=== PATIENT | male | born 1965 | race Caucasian/White ===

== ENCOUNTER 2017-12-31 10:24 | Emergency (ER) | payer SELFPAY ==
[2017-12-31 10:32] VITALS: BP 132/82
--- NOTE | 2017-12-31 11:38 | RADIOLOGY REPORT (SQ) ---
EXAM DESCRIPTION: HAND RIGHT 3 VIEWS COMPLETED DATE/TIME: 12/31/2017 11:21 am REASON FOR STUDY: right hand pain x2 weeks COMPARISON: None. EXAM PARAMETERS: NUMBER OF VIEWS: Three views. TECHNIQUE: AP, lateral and oblique radiographic images acquired of the right hand. LIMITATIONS: None. FINDINGS: MINERALIZATION: Normal. BONES: No acute fracture or dislocation. No worrisome bone lesions. JOINTS: No effusions. Mild interphalangeal joint space narrowing with small osteophytes. SOFT TISSUES: No soft tissue swelling. No foreign body. OTHER: No other significant finding. IMPRESSION: 1. No acute fracture-dislocation. 2. Mild right hand osteoarthrosis. TECHNICAL DOCUMENTATION: JOB ID: [id number] [employer]- All Rights Reserved Reading location - IP/workstation name: [email or web address]
[2017-12-31] MEDS ORDERED: ACETAMINOPHEN 325 MG TABLET PO ONE (11:51)
--- NOTE | 2017-12-31 11:52 | ER Document Report ---
HPI - HPI Patient complains to provider of: Joint pain Onset: Other - 2 weeks Onset/Duration: Persistent Quality of pain: Achy Pain Level: 4 Context: Patient presents complaining of joint pains of bilateral wrist, bilateral knees and right ankle for the past 2 weeks. Patient complains of some swelling to the right ankle and bilateral wrist. Patient denies any injury. Patient denies any history of rheumatoid arthritis, gout or autoimmune disorder. Patient denies any recent tick bites fever or skin rash. Patient without any headache. Associated Symptoms: Other - Joint pain and swelling. denies: Fever, Headache Exacerbated by: Movement Relieved by: Denies Similar symptoms previously: No Recently seen / treated by doctor: No - ROS ROS below otherwise negative: Yes Systems Reviewed and Negative: Yes All other systems reviewed and negative - CONSTITUTIONAL Constitutional: DENIES: Fever, Chills - EENT EENT: DENIES: Sore Throat - NEURO Neurology: DENIES: Headache, Weakness - RESPIRATORY Respiratory: DENIES: Coughing - REPRODUCTIVE Reproductive: DENIES: : - MUSCULOSKELETAL Musculoskeletal: REPORTS: Extremity pain, Swelling. DENIES: Back Pain, Neck Pain - DERM Skin Color: Normal Skin Problems: None Past Medical History - General Information source: Patient - Social History Smoking Status: Current Every Day Smoker Smoking Education Provided: Yes Frequency of alcohol use: None Drug Abuse: None Occupation: construction Family History: Reviewed & Not Pertinent - Medical History Medical History: Negative Past Surgical History: Reports: Hx Abdominal Surgery, Hx Appendectomy - Immunizations Hx Diphtheria, Pertussis, Tetanus Vaccination: Yes Vertical Provider Document - CONSTITUTIONAL Agree With Documented VS: Yes Exam Limitations: No Limitations General Appearance: WD/WN, No Apparent Distress - INFECTION CONTROL TRAVEL OUTSIDE OF THE [place] IN LAST 30 DAYS: No - HEENT HEENT: Atraumatic, Normal ENT Exam, Normocephalic - NECK Neck: Normal Inspection, Supple. negative: Lymphadenopathy-Left, Lymphadenopathy-Right - RESPIRATORY Respiratory: Breath Sounds Normal, No Respiratory Distress - CARDIOVASCULAR Cardiovascular: Regular Rate, Regular Rhythm Pulses: Normal: Radial, Posterior tibial - MUSCULOSKELETAL/EXTREMETIES Musculoskeletal/Extremeties: MAEW, FROM, Tender - Tenderness to bilateral wrist joints with 1+ edema that extends to the wrist distally into the hands. Patient with bilateral generalized knee joint tenderness. Right ankle joint tenderness to anterior aspect of joint with 1+ edema., Edema - Bilateral wrist, right ankle Notes: Patient's bilateral wrist, knees and ankle normal skin color and temperature with no overlying rash or erythema. - NEURO Level of Consciousness: Awake, Alert, Appropriate Motor/Sensory: No Motor Deficit, No Sensory Deficit - DERM Integumentary: Warm, Dry, No Rash Course - Re-evaluation Re-evalutation: 12/31/17 11:[address] Chacon regarding patient presentation and diagnostic evaluation. 12/31/17 12:56 Diagnostic test results reviewed, patient with still pending test that are send outs. Patient advised that he will need to follow-up with his primary doctor for further evaluation and that he may need rheumatologic follow-up. Patient without any erythema or fever. No concern for septic arthritis. Patient with good range of motion to the involved joints. Patient without any rash. Patient denies any history of tick bites. Discussed worsening symptoms for patient to return immediately for. Patient verbalized understanding and agrees with plan of care. - Vital Signs Vital signs: Temp Pulse Resp BP Pulse Ox 98.8 F 97 16 132/82 H 96 12/31/17 10:29 12/31/17 10:29 12/31/17 10:29 12/31/17 10:29 12/31/17 10:29 - Laboratory Result Diagrams: 12/31/17 12:05 12/31/17 12:05 Laboratory results interpreted by me: 12/31/17 12:56 Labs- Entire Visit 12/31/17 12/31/17 12/31/17 12:05 12:05 12:05 WBC 7.6 RBC 4.47 Hgb 13.6 Hct 39.6 MCV 89 MCH 30.4 MCHC 34.4 RDW 14.0 Plt Count 376 Seg Neutrophils % 51.3 Lymphocytes % 33.1 Monocytes % 10.6 Eosinophils % 4.5 Basophils % 0.5 Absolute Neutrophils 3.9 Absolute Lymphocytes 2.5 Absolute Monocytes 0.8 Absolute Eosinophils 0.3 Absolute Basophils 0.0 ESR 21 H Sodium 142.1 Potassium 4.6 Chloride 106 Carbon Dioxide 26 Anion Gap 10 BUN 17 Creatinine 0.71 Est GFR ( Amer) > 60 Est GFR (Non-Af Amer) > 60 Glucose 93 Uric Acid 4.0 Calcium 9.7 C-Reactive Protein 16.4 H Rheumatoid Factor NEGATIVE Procedures - Immobilization Left Wrist Pre-Proc Neuro Vasc Exam: Normal Immobilizer type: Merritt wrap Performed by: PCT Post-Proc Neuro Vasc Exam: Normal Alignment checked and good: Yes Right Wrist Pre-Proc Neuro Vasc Exam: Normal Immobilizer type: Merritt wrap Performed by: PCT Post-Proc Neuro Vasc Exam: Normal Alignment checked and good: Yes Discharge - Discharge Clinical Impression: polyarticular arthralgia, Arthritis Condition: Stable Disposition: HOME, SELF-CARE Instructions: Merritt Wrap ([facility]), Anti-Inflammatory Medication ([facility]), Arthralgia ( [facility]) Additional Instructions: Return immediately for any new or worsening symptoms Followup with your primary care provider, call tomorrow to make a followup appointment Take tylenol over the counter with your anti inflammatory medication for pain relief. Prescriptions: Naproxen [Naprosyn 250 Nmg Tablet] 1 tab PO BID #14 tablet Forms: Smoking Cessation Education, Return to Work Referrals: LUIS VILLALBA MD [NO LOCAL MD] - Follow up as needed MYNOR VILLALBA MD [NO LOCAL MD] - Follow up as needed
[2017-12-31 12:17] LABS: ABSOLUTE EOSINOPHILS # (AUTO) 0.3 10^3/uL (0.0-0.6); ABSOLUTE LYMPHOCYTES (AUTO) 2.5 10^3/uL (0.5-4.7); ABSOLUTE MONOCYTES (AUTO) 0.8 10^3/uL (0.1-1.4); ABSOLUTE NEUT (AUTO) 3.9 10^3/uL (1.7-8.2); BASOPHILS % (AUTO) 0.5 % (0-2); EOSINOPHILS % (AUTO) 4.5 % (0-6); HEMATOCRIT 39.6 % (37.9-51.0); HEMOGLOBIN 13.6 g/dL (13.5-17.0); LYMPHOCYTES % (AUTO) 33.1 % (13-45); MEAN CORPUSCULAR HEMOGLOBIN 30.4 pg (27.0-33.4); MEAN CORPUSCULAR HGB CONC 34.4 g/dL (32.0-36.0); MEAN CORPUSCULAR VOLUME 89 fl (80-97); MONOCYTES % (AUTO) 10.6 % (3-13); PLATELET COUNT 376 10^3/uL (150-450); RED BLOOD COUNT 4.47 10^6/uL (4.35-5.55); SEGMENTED NEUTROPHILS % (AUTO) 51.3 % (42-78); TOTAL CELLS COUNTED % (AUTO) 100 %; WHITE BLOOD COUNT 7.6 10^3/uL (4.0-10.5)
[2017-12-31 12:38] LABS: ANION GAP 10 (5-19); BLOOD UREA NITROGEN 17 mg/dL (7-20); C-REACTIVE PROTEIN 16.4 mg/L (<10.0); CALCIUM 9.7 mg/dL (8.4-10.2); CARBON DIOXIDE 26 mmol/L (22-30); CHLORIDE 106 mmol/L (98-107); GLUCOSE 93 mg/dL (75-110); POTASSIUM 4.6 mmol/L (3.6-5.0); SODIUM 142.1 mmol/L (137-145)
[2017-12-31 12:54] LABS: ERYTHROCYTE SEDIMENTATION RATE 21 mm/hr (0-20)
[2017-12-31] MEDS ORDERED: DEXAMETHASONE 4 MG TABLET PO ONE (13:02)
[2018-01-02 13:38] LABS: ANTICHROMATIN AB 0.3 AI (0.0-0.9); CENTROMERE B AB <0.2 AI (0.0-0.9); JO-1 ANTIBODY (ANACOMP) <0.2 AI (0.0-0.9); RNP AB <0.2 AI (0.0-0.9); SCLERODERMA-70 ANTIBODIES <0.2 AI (0.0-0.9); SJOGREN'S ANTI-SS-B AB <0.2 AI (0.0-0.9); SJOGREN'S SS-A ANTIBODY >8.0 AI (0.0-0.9); SMITH AB ANA 0.2 AI (0.0-0.9)
[2018-01-02 14:57] LABS: DNA DOUBLE STRAND ANTIBODY ANA 1 IU/mL (0-9); LYME DISEASE IGM AB <0.80 index (0.00-0.79)
== END 2017-12-31 13:20 | disposition home or self-care (01) ==
LOC: ER 10:24
DX: M19.90 Unspecified osteoarthritis, unspecified site (principal); M25.50 Pain in unspecified joint; F17.200 Nicotine dependence, unspecified, uncomplicated
CPT/HCPCS: 36415; 80048; 84550; 85025; 85652; 86140; 86225; 86235; 86430; 86617; 86618; 99283